=== PATIENT | female | born 1955 | race Caucasian/White ===

== ENCOUNTER → 2017-10-01 10:54 | Outpatient (CLI) | payer OTHER, SELFPAY ==
--- NOTE | 2017-10-01 11:09 | VDLE_ITS ---
Reason For Study: LEG PAIN RIGHT LEFT GSV is normal. CFV is compressible, spontaneous, phasic, CFV is compressible, spontaneous, phasic, competent, and demonstrates normal competent and demonstrates normal augmentation. augmentation. FV is compressible, spontaneous, phasic, competent and demonstrates normal augmentation. POP V is compressible, spontaneous, phasic, competent and demonstrates normal augmentation. T/P Trunk is compressible. PTV is compressible. RT PerV is compressible. Gastroc vein is dilated and non- compressible. Procedure Exam performed in department. A preliminary report was called and/or faxed to Dr. Rosas. Instructed for Pt to go to ED if +. Interpretation Summary Acute deep vein thrombosis is noted in the right gastrocnemius vein. The remainder of the right lower extremity deep venous system is patent and compressible. Valvular competence appears intact within the proximal deep venous system on the right . The right greater saphenous vein appears patent and compressible segmentally. Ordering Physician: Lorenzo Rosas Referring Physician: Lorenzo Rosas Performed By: Britt Rain RVT
== END ==
PROVIDERS: Family Provider Family Medicine; PCP Family Medicine; Visit Provider Family Medicine
DX: S86.111A Strain of other muscle(s) and tendon(s) of posterior muscle group at lower leg level, right leg, initial encounter (principal); S83.91XA Sprain of unspecified site of right knee, initial encounter; X58.XXXA Exposure to other specified factors, initial encounter
CPT/HCPCS: 93970; 93971

== ENCOUNTER 2017-10-01 11:39 | Emergency (ER) | payer OTHER, SELFPAY ==
[2017-10-01 11:41] VITALS: BP 133/66; PULSE 75; RESP 14; TEMP 36.9; O2SAT 93; BMI 25.6
--- NOTE | 2017-10-01 11:58 | NURSING ---
NO LW OR POA
--- NOTE | 2017-10-01 12:37 | ED.VISSUMM ---
- ER Visit Summary Date of Service: 10/01/17 Chief Complaint: [] Right calf DVT on outpatient study History of Present Illness: The patient is a 62 F [] has no past history she reports she fell at work striking the back of her right calf she was seen at the [facility] they ordered a duplex scan as an outpatient, the duplex scan was done today and shown to have a gastroc vein DVT there is no popliteal vein DVT or other DVT in that leg I confirmed all the above with the technologist who did the study. The patient has no fever no cough no chest pain no other complaints she simply came to the emergency department on the instructions she was given after the study, she has no history of DVT GI bleeding surgery Physical Examination: [] No distress head neck chest unremarkable there is some very mild pain over the calf there is no pain in the knee itself with range of motion the tib-fib ankle and foot are unremarkable strong pulses normal sensation she indicates she is able to walk Test Results: [] Emergency Department Course and Treatment: [] Screening labs are obtained and are unremarkable I explained all the above the patient I explained given that this is a calf vein DVT she will require pain management she is continued continue to walk warm compresses and she needs to have a repeat scan in 3-5 days and then a subsequent scan after that to make shows no propagation she will follow up with the [facility] to make sure that is done and return for change in symptoms She was given the requisition for the duplex scan follow-up but again told she will need to follow-up with her family doctor or [facility] for further management of this condition Did contact [facility] and make them aware of the above, further I referred her back to her PCP for better transition of care and she was given a requisition to have the repeat scan in 3 , 7 and 10 days Treatment Plan: [] Disposition: [] Stable home Impression: [] Calf vein DVT right after fall This note was generated with [employer] dictation software. It may contain incorrect words, spelling, and punctuation that were not noted in review of the chart prior to signing ED Disposition - Plan for ED Patient: Chief Complaint: Abn Labs Instructions: ED DVT Referrals: Haley Cordova [Primary Care Provider] - Additional Instructions: Have a repeat DVT scan done in 3-5 days follow-up with [facility] or your family doctor for further management
--- NOTE | 2017-10-01 12:40 | ED.DCSUM_ITS ---
- ER Visit Summary Date of Service: 10/01/17 Chief Complaint: [] Right calf DVT on outpatient study History of Present Illness: The patient is a 62 F [] has no past history she reports she fell at work striking the back of her right calf she was seen at the [facility] they ordered a duplex scan as an outpatient, the duplex scan was done today and shown to have a gastroc vein DVT there is no popliteal vein DVT or other DVT in that leg I confirmed all the above with the technologist who did the study. The patient has no fever no cough no chest pain no other complaints she simply came to the emergency department on the instructions she was given after the study, she has no history of DVT GI bleeding surgery Physical Examination: [] No distress head neck chest unremarkable there is some very mild pain over the calf there is no pain in the knee itself with range of motion the tib-fib ankle and foot are unremarkable strong pulses normal sensation she indicates she is able to walk Test Results: [] Emergency Department Course and Treatment: [] Screening labs are obtained and are unremarkable I explained all the above the patient I explained given that this is a calf vein DVT she will require pain management she is continued continue to walk warm compresses and she needs to have a repeat scan in 3-5 days and then a subsequent scan after that to make shows no propagation she will follow up with the [facility] to make sure that is done and return for change in symptoms She was given the requisition for the duplex scan follow-up but again told she will need to follow-up with her family doctor or [facility] for further management of this condition Did contact [facility] and make them aware of the above, further I referred her back to her PCP for better transition of care and she was given a requisition to have the repeat scan in 3 , 7 and 10 days Treatment Plan: [] Disposition: [] Stable home Impression: [] Calf vein DVT right after fall This note was generated with [employer] dictation software. It may contain incorrect words, spelling, and punctuation that were not noted in review of the chart prior to signing ED Disposition - Plan for ED Patient: Chief Complaint: Abn Labs Instructions: ED DVT Referrals: Haley Cordova [Primary Care Provider] - Additional Instructions: Have a repeat DVT scan done in 3-5 days follow-up with [facility] or your family doctor for further management
--- NOTE | 2017-10-01 12:41 | DCINST.ED_ITS ---
ED Disposition - Plan for ED Patient: Chief Complaint: Abn Labs Instructions: ED DVT Referrals: Haley Cordova [Primary Care Provider] - Additional Instructions: Have a repeat DVT scan done in 3-5 days follow-up with [facility] or your family doctor for further management
--- NOTE | 2017-10-01 12:47 | ED.DEP ---
ED Disposition - Plan for ED Patient: Chief Complaint: Abn Labs Instructions: ED DVT Prescriptions: Naproxen [Naprosyn] 500 mg PO BID PRN #20 tab Referrals: Haley Cordova [Primary Care Provider] - Additional Instructions: Have a repeat DVT scan done in 3-5 days follow-up with [facility] or your family doctor for further management
[2017-10-01 12:50] LABS: Absolute Lymphocyte Count 2.72 X10^3/ul (0.83-4.51); Absolute Neutrophil Count 3.4 X10^3/uL (2.0-7.7); Anion Gap 6 (5-15); BUN 22 mg/dL (7-18); BUN/Creat Ratio 27.5 RATIO (10-20); Basophil% 1.4 % (0-1); Calcium,Total 8.8 mg/dL (8.5-10.1); Chloride 109 mmol/L (98-107); EST Glomerular Filtration Rate 77 mL/min (>60); Eosinophil# 0.23 X10^3/uL; Eosinophils% 3.2 % (0-5); Est Glom Filt Rate - Afr Amer 93 mL/min (>60); Glucose 76 mg/dL (74-106); Hematocrit 41.5 % (37-47); Lymphocyte # 2.72 X10^3/ul (4.0); Lymphocyte % 38.3 % (19-41); Mean Corp Hgb Conc 33.7 g/gl (32-36); Mean Corpuscular Hgb 33.7 pg (27.0-32.0); Mean Corpuscular Volume 99.8 fL (81-99); Mean Platelet Vol. 10.4 fl (6.2-12.0); Monocyte# 0.61 X10^3/uL; Monocyte% 8.6 % (0-10); Neutrophil # 3.44 X10^3/uL (2.7-7.7); Neutrophil % 48.4 % (47-70); Platelet Count 238 K/mm3 (150-450); Potassium 4.1 mmol/L (3.5-5.1); RBC Distribution Width CV 13.2 % (11.6-14.6); RBC Distribution Width SD 47.6 fl (35.1-43.9); Red Blood Count 4.16 M/mm3 (4.2-5.4); Sodium Level 143 mmol/L (136-145); White Blood Count 7.1 K/mm3 (4.4-11.0)
[2017-10-01 12:51] LABS: Prothrombin Time (Protime)PT. 13.1 SECONDS (11.7-14.9)
[2017-10-01 12:55] LABS: POSITIVE COUNT NO; POSITIVE DIFFERENTIAL NO; POSITIVE MORPHOLOGY NO
[2017-10-01 14:14] VITALS: PULSE 78; RESP 16; O2SAT 98
== END 2017-10-01 14:15 | disposition home or self-care (01) ==
PROVIDERS: Emergency Provider Emergency Medicine; Family Provider Family Medicine; PCP Family Medicine
DX: I82.4Z1 Acute embolism and thrombosis of unspecified deep veins of right distal lower extremity (principal); S86.111A Strain of other muscle(s) and tendon(s) of posterior muscle group at lower leg level, right leg, initial encounter; S83.91XA Sprain of unspecified site of right knee, initial encounter; W19.XXXA Unspecified fall, initial encounter; Y93.89 Activity, other specified; Y92.89 Other specified places as the place of occurrence of the external cause; Y99.0 Civilian activity done for income or pay
CPT/HCPCS: 80048; 85025; 85610; 93971; 99283; A4216

== ENCOUNTER → 2017-10-04 10:54 | Outpatient (CLI) | payer OTHER, SELFPAY ==
--- NOTE | 2017-10-04 10:58 | VDLE_ITS ---
Reason For Study: F/U Rt calf DVT RIGHT LEFT GSV is normal. CFV is compressible, spontaneous, phasic, CFV is compressible, spontaneous, phasic, competent, and demonstrates normal competent and demonstrates normal augmentation. augmentation. FV is compressible, spontaneous, phasic, competent and demonstrates normal augmentation. POP V is compressible, spontaneous, phasic, competent and demonstrates normal augmentation. T/P Trunk is compressible. PTV is compressible. RT PerV is compressible. Rt GastrocV is dilated and non compressible (no change from previous study done 10/01/2017). Procedure Exam performed in department. A preliminary report was called and/or faxed to Haley Cordova. Interpretation Summary Acute deep vein thrombosis is noted in the right gastrocnemius vein. The remainder of the right lower extremity deep venous system is patent and compressible. Valvular competence appears intact within the proximal deep venous system on the right . The right greater saphenous vein appears patent and compressible segmentally. There has been no significant change since a prior study on 10/01/2017. Ordering Physician: Haley Cordova Referring Physician: Mehdi Knox Performed By: Kristina Shanks, SEAN, RVT
== END ==
PROVIDERS: Family Provider Family Medicine; PCP Family Medicine; Visit Provider Emergency Medicine
DX: I82.4Z1 Acute embolism and thrombosis of unspecified deep veins of right distal lower extremity (principal)
CPT/HCPCS: 93971

== ENCOUNTER → 2017-10-08 11:01 | Outpatient (CLI) | payer OTHER, SELFPAY ==
--- NOTE | 2017-10-08 11:03 | VDLE_ITS ---
Reason For Study: DVT RIGHT LEFT GSV is normal. CFV is compressible, spontaneous, phasic, CFV is compressible, spontaneous, phasic, competent, and demonstrates normal competent and demonstrates normal augmentation. augmentation. FV is compressible, spontaneous, phasic, competent and demonstrates normal augmentation. POP V is compressible, spontaneous, phasic, competent and demonstrates normal augmentation. T/P Trunk is compressible. PTV is compressible. RT PerV is compressible. Rt Gastroc V is dilated and non compressible (no significant change from previous study done 10/04/2017). Procedure Exam performed in department. The exam was diagnostic. A preliminary report was called and/or faxed to Dr. Cordova. Interpretation Summary Acute deep vein thrombosis is noted in the right gastrocnemius vein. The remainder of the right lower extremity deep venous system is patent and compressible. Valvular competence appears intact within the proximal deep venous system on the right . The right greater saphenous vein appears patent and compressible segmentally. There has been no significant change since a prior study on 10/04/2017. Ordering Physician: Mehdi Knox Referring Physician: Haley Cordova Performed By: Jeremy Hoffman RVMeka
== END ==
PROVIDERS: Family Provider Family Medicine; PCP Family Medicine; Visit Provider Emergency Medicine
DX: I82.4Z1 Acute embolism and thrombosis of unspecified deep veins of right distal lower extremity (principal)
CPT/HCPCS: 93971

== ENCOUNTER → 2017-10-22 10:58 | Outpatient (CLI) | payer OTHER, SELFPAY ==
--- NOTE | 2017-10-22 11:03 | VDLE_ITS ---
Reason For Study: F/U DVT RIGHT LEFT GSV is normal. CFV is compressible, spontaneous, phasic, CFV is compressible, spontaneous, phasic, competent, and demonstrates normal competent and demonstrates normal augmentation. augmentation. FV is compressible, spontaneous, phasic, competent and demonstrates normal augmentation. POP V is compressible, spontaneous, phasic, competent and demonstrates normal augmentation. T/P Trunk is compressible. PTV is compressible. RT PerV is compressible. Rt Gastroc V is dilated and non compressible (no significant change from previous study done 10/08/2017). Procedure Exam performed in department. The exam was diagnostic. A preliminary report was called and/or faxed to Dr. Rosas. Interpretation Summary Acute deep vein thrombosis is noted in the right gastrocnemius vein. The remainder of the right lower extremity deep venous system is patent and compressible. Valvular competence appears intact within the proximal deep venous system on the right . The right greater saphenous vein appears patent and compressible segmentally. There has been no significant change since a prior study on 10/08/2017. Ordering Physician: Mehdi Knox Referring Physician: Mehdi Knox Performed By: Jeremy Hoffman RVT
== END ==
PROVIDERS: Family Provider Family Medicine; PCP Family Medicine; Visit Provider Emergency Medicine
DX: I82.4Z1 Acute embolism and thrombosis of unspecified deep veins of right distal lower extremity (principal)
CPT/HCPCS: 93971

== ENCOUNTER → 2017-11-19 12:42 | Outpatient (CLI) | payer OTHER, SELFPAY ==
--- NOTE | 2017-11-19 12:45 | VDLE_ITS ---
Reason For Study: F/U RLE Gastroc clot RIGHT GSV is normal. CFV is compressible, spontaneous, phasic, competent and demonstrates normal augmentation. FV is compressible, spontaneous, phasic, competent and demonstrates normal augmentation. POP V is compressible, spontaneous, phasic, competent and demonstrates normal augmentation. T/P Trunk is compressible. PTV is compressible. RT PerV is compressible. RT Gastroc v remains dilated and non- compressible. No change from previous exam 10/22/17. Procedure Exam performed in department. A preliminary report was called and/or faxed to Dr. Rosas. Interpretation Summary Acute deep vein thrombosis is noted in the right gastrocnemius vein. The remainder of the right lower extremity deep venous system is patent and compressible. Valvular competence appears intact within the proximal deep venous system on the right . The right greater saphenous vein appears patent and compressible segmentally. There has been no significant change since a prior study on 10/22/2017. Ordering Physician: Lorenzo Rosas Referring Physician: Haley Cordova Performed By: Britt Rain RVT
== END ==
PROVIDERS: Family Provider Family Medicine; PCP Family Medicine; Visit Provider Family Medicine
DX: S83.91XA Sprain of unspecified site of right knee, initial encounter (principal); S46.912A Strain of unspecified muscle, fascia and tendon at shoulder and upper arm level, left arm, initial encounter; S43.402A Unspecified sprain of left shoulder joint, initial encounter
CPT/HCPCS: 93971

== ENCOUNTER → 2018-02-06 09:04 | Outpatient (CLI) | payer OTHER, SELFPAY ==
--- NOTE | 2018-02-06 09:11 | VDLE_ITS ---
Reason For Study: F/U RT gastroc DVT RIGHT LEFT GSV is normal. CFV is compressible, spontaneous, phasic, CFV is compressible, spontaneous, phasic, competent, and demonstrates normal competent and demonstrates normal augmentation. augmentation. FV is compressible, spontaneous, phasic, competent and demonstrates normal augmentation. POP V is compressible, spontaneous, phasic, competent and demonstrates normal augmentation. T/P Trunk is compressible. PTV is compressible. RT PerV is compressible. RT GASTROC V is slightly, partially compressible. Very small improvement noted from previous exam on 11/19/17. Procedure Exam performed in department. The exam was diagnostic. A preliminary report was called and/or faxed to Dr. Rosas @ [phone] @ 10:35 am. Interpretation Summary The right gastrocnemius vein is partially compressible, demonstrating slight improvement from a prior study on 11/19/2017. The remainder of the right lower extremity deep venous system is patent and compressible. Valvular competence appears intact within the proximal deep venous system on the right . The right greater saphenous vein appears patent and compressible segmentally. Ordering Physician: Lornezo Rosas Referring Physician: Lorenzo Rosas Performed By: Meredith Nuno, SEAN, RVT
== END ==
PROVIDERS: Family Provider Family Medicine; PCP Family Medicine; Visit Provider Family Medicine
DX: I82.401 Acute embolism and thrombosis of unspecified deep veins of right lower extremity (principal)
CPT/HCPCS: 93971

== ENCOUNTER → 2018-04-04 13:05 | Outpatient (CLI) | payer OTHER, SELFPAY | PROVIDERS: Family Provider Family Medicine; PCP Family Medicine; Visit Provider Family Medicine | DX: I82.401 Acute embolism and thrombosis of unspecified deep veins of right lower extremity (principal); S83.91XA Sprain of unspecified site of right knee, initial encounter | CPT/HCPCS: 93971 ==

== ENCOUNTER → 2018-04-18 10:15 | Outpatient (CLI) | payer MEDICARE, SELFPAY ==
[2018-04-18 15:41] LABS: M R Staph aureus DNA By PCR Negative (Negative); Probe Check PASS; Specimen Processing Control PASS; Staph aureus DNA By PCR NEGATIVE (Negative)
== END ==
PROVIDERS: Family Provider Family Medicine; PCP Family Medicine; Visit Provider Podiatrist
DX: L03.90 Cellulitis, unspecified (principal); L02.91 Cutaneous abscess, unspecified
CPT/HCPCS: 87070; 87205; 87640

== ENCOUNTER → 2018-09-09 18:02 | Outpatient (CLI) | payer MEDICARE, SELFPAY | PROVIDERS: Family Provider Family Medicine; PCP Family Medicine; Referring Provider Podiatrist; Visit Provider Podiatrist | DX: L03.90 Cellulitis, unspecified (principal); L97.529 Non-pressure chronic ulcer of other part of left foot with unspecified severity | CPT/HCPCS: 87070; 87075; 87077; 87186; 87205 ==

== ENCOUNTER → 2018-10-16 10:26 | Outpatient (CLI) | payer OTHER, SELFPAY ==
--- NOTE | 2018-10-16 10:31 | VDLE_ITS ---
Reason For Study: RLE DVT - swelling RIGHT LEFT GSV is normal. CFV is compressible, spontaneous, phasic, CFV is compressible, spontaneous, phasic, competent, and demonstrates normal competent and demonstrates normal augmentation. augmentation. FV is compressible, spontaneous, phasic, competent and demonstrates normal augmentation. POP V is compressible, spontaneous, phasic, competent and demonstrates normal augmentation. T/P Trunk is compressible. PTV is compressible. Gastroc v is partially compressible with bright intraluminal echoes consistant with chronic clot. Procedure Exam performed in department. A preliminary report was called and/or faxed to Dr. Jolly. Interpretation Summary Chronic venous changes are noted in the right gastrocnemius vein, which is partially compressible and demonstrates bright intraluminal echogenicity. The remainder of the right lower extremity deep venous system is patent and compressible. Valvular competence appears intact within the proximal deep venous system on the right . The right greater saphenous vein appears patent and compressible segmentally. Ordering Physician: Chuy Jolly Referring Physician: Chuy Jolly Performed By: Britt Rain RVT
== END ==
PROVIDERS: Family Provider Family Medicine; PCP Family Medicine; Referring Provider Emergency Medicine; Visit Provider Emergency Medicine
DX: I82.401 Acute embolism and thrombosis of unspecified deep veins of right lower extremity (principal); S83.91XA Sprain of unspecified site of right knee, initial encounter; S83.281A Other tear of lateral meniscus, current injury, right knee, initial encounter
CPT/HCPCS: 93971